=== PATIENT | male | born 1980 | race Caucasian/White ===

== ENCOUNTER 2022-04-18 23:54 | Inpatient (IN) | payer BC ==
[~2022-04-18] VITALS: Ht 182.9 cm; Wt 83.9 kg
[2022-04-19] VITALS: BP_SYST 167
[2022-04-19 01:16] LABS: BILIRUBIN,URINE NEGATIVE (NEGATIVE); BLOOD, URINE 1+ (NEGATIVE); CLARITY/URINE CLEAR (CLEAR); COLOR,URINE YELLOW (YELLOW); GLUCOSE,URINE NEGATIVE (NEGATIVE); KETONES,URINE NEGATIVE (NEGATIVE); LEUKOCYTE ESTERASE ,URINE NEGATIVE (NEGATIVE); NITRITE, URINE NEGATIVE (NEGATIVE); PH,URINE 5.5 (5.0-8.0); PROTEIN URINE NEGATIVE (NEGATIVE); UROBILINOGEN,URINE 0.2 (0.2-1.0)
[2022-04-19 01:19] LABS: CREATININE 0.94 mg/dL (0.55-1.30)
[2022-04-19 01:26] LABS: ALBUMIN 3.7 g/dL (3.4-4.8); TOTAL BILIRUBIN 0.4 mg/dL (0.0-1.0)
[2022-04-19 01:36] LABS: BASOPHILS # (AUTO) 0.1 K/uL (0.0-0.2); BASOPHILS % (AUTO) 0.6 % (0.0-2.0); EOSINOPHILS # (AUTO) 0.1 K/uL (0.0-0.4); EOSINOPHILS % (AUTO) 0.8 % (0.0-4.0); HEMATOCRIT 42.9 % (36-54); HEMOGLOBIN 14.5 g/dL (14.0-18.0); LYMPHOCYTES # (AUTO) 3.4 K/uL (1.0-5.5); LYMPHOCYTES % (AUTO) 21.8 % (20.5-51.5); MEAN CORPUSCULAR HEMOGLOBIN 32 pg (27-31); MEAN CORPUSCULAR HGB CONC 34 % (32-36); MEAN CORPUSCULAR VOLUME 93 fL (79.0-98.0); MONOCYTES # (AUTO) 1.1 K/uL (0.0-1.0); MONOCYTES % (AUTO) 6.7 % (1.7-9.3); NEUTROPHILS % (AUTO) 70.1 % (40.0-70.0); PLATELET COUNT (AUTO) 278 K/uL (130-430); RED CELL DISTRIBUTION WIDTH 13.3 % (9.0-15.0); WHITE BLOOD COUNT (AUTO) 15.8 K/uL (4.8-10.8)
[2022-04-19 01:51] LABS: BACTERIA,URINE RARE /HPF (None Seen); RBC,URINE 0-3 /HPF (0-3); WBC,URINE 0-3 /HPF (0-3)
--- NOTE | 2022-04-19 02:10 | NUR ---
PT DROVE HIMSELF TO ER WITH COMPLAINTS OF LOWER RIGHT ABDOMINAL QUADRANT WHICH STARTED LAST NIGHT AFTER HAVING DINNER AT [employer]. PT FEEL ASLEEP ONCE HE GOT HOME AND WAS AWAKEN APX 45 MIN LATER WITH THE ABDOMINAL PAIN AND HAS GOTTEN PROGRESSIVELY MORE INTENCE THROUGHOUT NIGHT AND DROVE HIMSELF TO ER. PT DENIES CHEST PAIN, ARM PAIN AND DENIES TROUBLE BREATHIN. PT IS AOX4. PT IN BED WITH BED LOWERED AND LOCKED, RAILS UP. WILL CONTINUE TO MONITOR
--- NOTE | 2022-04-19 02:25 | NUR ---
# 18 gauge angiocath placed to LAC. Use of asceptic technique. Opsite placed over site. Blood return noted. Blood for lab drawn from site. Flushed with 10 cc of normal saline. No evidence of infiltration noted. Patient tolerated well.
[2022-04-19] MEDS ORDERED: NACL 0.9% 1,000 ML IV ONE (02:30)
[2022-04-19] MEDS ORDERED: ONDANSETRON HCL 4 MG/2 ML VIAL IVP ONE (02:30)
[2022-04-19] MEDS ORDERED: MORPHINE 4 MG INJ. 4 MG/ML VIAL IVP ONE ×2 (02:30→04:30)
[2022-04-19] MEDS ORDERED: PIPERACILLIN/TAZO 3.375 GM in NS 50 ML IV ONE (02:30)
[2022-04-19] MEDS ORDERED: PIPERACILLIN/TAZOBACTAM 3.375 GM/VIAL (ZOSYN) IV ONE (02:42)
--- NOTE | 2022-04-19 02:57 | NUR ---
Admit bed requested Patient will be admitted to care of . Admitted to MED SURG unit. Diagnosis ACUTE APPENDICITUS Inpatient (Yes or No) YES Observation (Yes or No) NO Orientation concerns or request close to nursing station (Yes or No) NO Covid Status PENDING On vent or bipap NO Isolation requirements NO Needs a sitter NO From Home (Yes or if No enter name of facility) HOME Requires Dialysis (Yes or No) NO Med Rec Completed (Yes of No) YES
[2022-04-19] MEDS ORDERED: D5NS 1,000 ML IV ONE (03:00)
[2022-04-19] MEDS ORDERED: MORPHINE 2 MG/ML INJ. SYRINGE IVP PRN ×6 (03:00→12:45)
[2022-04-19] MEDS ORDERED: ACETAMINOPHEN 325 MG TABLET PO PRN (05:45)
[2022-04-19] MEDS ORDERED: NALOXONE HCL 0.4 MG/ML AMP (NARCAN) IVP PRN ×2 (05:45)
[2022-04-19] MEDS ORDERED: POTASSIUM CHLORIDE 20 MEQ TAB.PRT.SR PO PRN (05:45)
[2022-04-19] MEDS ORDERED: LORazepam 2 MG/ML VIAL IVP PRN (05:45)
[2022-04-19] MEDS ORDERED: MUPIROCIN 2% TOPICAL OINTMENT 22 GM NS PRN (05:45)
[2022-04-19] MEDS ORDERED: DOCUSATE SODIUM 100 MG CAPSULE PO PRN (05:45)
[2022-04-19] MEDS ORDERED: ZOLPIDEM TARTRATE 5 MG TABLET PO PRN (05:45)
[2022-04-19] MEDS ORDERED: ONDANSETRON HCL 4 MG/2 ML VIAL IVP PRN ×2 (05:45→16:15)
[2022-04-19] MEDS ORDERED: MAGNESIUM SULFATE 50 ML IV PRN (05:45)
--- NOTE | 2022-04-19 07:30 | NUR ---
ASSUMED CARE OF PT AT THIS TIME. PT IN BED RESTING COMFORTABLY, REPORTS 7/10 rlq PAIN. PT WAS LAST MEDICATED AT 0530. DISCUSSED NON PHARMACOLOGICAL MEASURES WITH PT. VSS. RESP EVEN AND UNLABORED. AWAITING MEDICAL BED. WILL CONT TO MONITOR
--- NOTE | 2022-04-19 09:05 | NUR ---
PT HAS READY BED. PT REPORTS PAIN 06/22. PT IS NOT DUE FOR PAIN MEDICATION YET. WILL INFORM MD FOR PAIN MEDICATION. VSS. WILL PREPARE PT FOR TRANSFER TO FLOOR
--- NOTE | 2022-04-19 09:08 | NUR ---
REPORT CALLED TO [facility]. PT GOING TO ROOM 100B. ENDORSED TO RN AWAITING PAIN MEDICATION ORDERS. VSS. RESP EVEN AND UNLABRED. PT IS STABLE FOR TRANSFER TO FLOOR
[2022-04-19 09:30] VITALS: BP_SYST 144
--- NOTE | 2022-04-19 09:30 | NUR ---
Opening Notes Patient is awake, alert and oriented x4. Pt was able to ambulate from gurney to bed, stable gait. No resp distress noted. Breathing is even and unlabored, RA. Pt is c/o 9/10 RLQ pain, throbbing/sharp, requesting pain meds. Administered Morphine 2 mg IVP at 0933, tolerated well. IV site on left AC 18 gauge intact. Started IVF: D5NS @ 100ml/hr, infusing well. Pt remains NPO for scheduled surgery with Dr. Maddox at approximately [phone]. Consent signed, pending anesthesiologist consent. Pt was oriented to the room and taught use of the call light. Pt was successful in return demo. Nares swabbed for MRSA, sent to lab. All needs met at this time. Safety and fall precautions in place. Bed in lowest position, locked. Will continue to monitor.
[2022-04-19 09:37] VITALS: BP_SYST 144
[2022-04-19] MEDS: PIPERACILLIN/TAZO 3.375/DEX-IS 50 ML IV SCH ×3 (11:17→23:24)
--- NOTE | 2022-04-19 11:38 | NUR ---
CONSULT SURGERY ACUTE APPENDICITIS SERENA ELLIOTT [phone] S/W GOLD OFFICE
--- NOTE | 2022-04-19 12:00 | NUR ---
Notes Patient is sleeping in bed. No resp distress noted. Breathing is even and unlabored, RA. Pt shows no signs of pain at this time. Pt remains NPO, pending surgery. Will continue to monitor.
[2022-04-19 13:08] VITALS: BP_SYST 154
--- NOTE | 2022-04-19 15:15 | NUR ---
Patient transferred to surgery. No acute distress. Will continue to monitor.
--- NOTE | 2022-04-19 16:00 | NUR ---
Patient off the floor, still in surgery.
[2022-04-19] MEDS ORDERED: METOCLOPRAMIDE HCL 10 MG/2 ML VIAL IVP PRN (16:15)
[2022-04-19] MEDS ORDERED: fentaNYL CITRATE/PF 100 MCG/2 ML AMP IVP PRN ×2 (16:15)
[2022-04-19] MEDS ORDERED: GLYCOPYRROLATE 0.2 MG/ML VIAL ONE (17:45)
[2022-04-19] MEDS ORDERED: MIDAZOLAM HCL 5 MG/ML VIAL (VERSED) IV ONE (17:45)
[2022-04-19] MEDS ORDERED: fentaNYL CITRATE/PF 100 MCG/2 ML AMP ONE (17:45)
[2022-04-19] MEDS ORDERED: PHENYLEPHRINE HCL 10 MG/ML VIAL (NEOSYNEPHRINE) ONE (17:45)
[2022-04-19] MEDS ORDERED: WATER FOR IRRIGATION,STERILE 1,000 ML IRRIG.SOLN IR ONE (17:45)
[2022-04-19] MEDS ORDERED: NS 1000 ML IV.SOLN IV ONE (17:45)
[2022-04-19] MEDS ORDERED: ROCURONIUM BROMIDE 10 MG/ML (ZEMURON) ONE (17:45)
[2022-04-19] MEDS ORDERED: BUPIVACAINE /EPINEPHRINE/PF 0.25% 30 ML VIAL INJ ONE (17:45)
[2022-04-19] MEDS ORDERED: SEVOFLURANE 15 MIN GAS INH ONE (17:45)
[2022-04-19] MEDS ORDERED: PROPOFOL 200MG/ 20ML VIAL (DIPRIVAN) IV ONE (17:45)
--- NOTE | 2022-04-19 18:30 | NUR ---
Closing Notes/Back from Sx Received patient back from surgery, stable at this time. No resp distress noted. Breathing is even and unlabored, RA. Pt denies any pain at this time. IV site on left FA 18 gauge intact, IV ATB Zosyn started. Pt was able to void using his bedside urinal, 600 cc of clear and yellow urine. Per pt, he has NOT passed flatus yet. Pt is noted with 3 abdominal incisions, C/D/I. NONI drain on LLQ, pink tinged output. Pt to resume clear liquid diet/no red. Pt educated on use of IS. , Clau by bedside. All needs met at this time. Safety and fall precautions in place. Bed in lowest position, alarm on, locked. Will continue to monitor.
[2022-04-19 20:10] VITALS: BP_SYST 145
--- NOTE | 2022-04-19 20:10 | NUR ---
PM ASSESSMENT; -Pt is a/xo4, resting in bed comfortably. Pt denies any chest pain,pain,sob,or any acute distress noted. Surgical site of mid abdominal w/ 3x incisional drsg cdi w/ JPx1 (left lateral ) drains pinkish drainage noted. IV site patent, no s/s any infiltration after flushed w/ NS noted. Pt tolerated ice chips and fluid well, no s/s any N&V or any difficulty noted. Spouse is at bedside. Call light w/in reach. All safety measures in place. Cont to monitor pt.
--- NOTE | 2022-04-19 23:29 | NUR ---
ROUNDS; PAIN MGMT -Pt is c/o abdom pain 03/22, gave Morphine IVP for pain mgmt. Pt denies chest pain,sob,or any acute distress. Gave Zosyn IVPB. IV site patent, no s/s any infiltration noted. Call light w/in reach. All safety measures in place. Cont to monitor pt.
[2022-04-20 00:24] VITALS: BP_SYST 133
--- NOTE | 2022-04-20 00:25 | NUR ---
ROUNDS; -Pt is laying in bed comfortably. Pt denies chest pain,sob,or any acute distress. Side railsx2, Call light w/in reach. All safety measures in place. Cont to monitor pt.
--- NOTE | 2022-04-20 02:30 | NUR ---
ROUNDS; -Pt is asleep. NO s/s any chest pain,sob,or any acute distress noted. Side railsx2, Call light w/in reach. All safety measures in place. Cont to monitor pt.
--- NOTE | 2022-04-20 04:40 | NUR ---
ROUNDS; -Pt awakes, resting in bed. Pt stated that he ambulated fdc w/o any difficulty. Pt denies any chest pain,sob,or any acute distress noted. Pt refused to use dez SCD this time. Pt used incentive spirometry 6-10x at marker 2000ml, encouraged pt to increase more of the marker, pt verbalized understanding. Side railsx2, Call light w/in reach. All safety measures in place. Cont to monitor pt.
[2022-04-20] MEDS: PIPERACILLIN/TAZO 3.375/DEX-IS 50 ML IV SCH ×3 (05:04→19:06)
--- NOTE | 2022-04-20 06:18 | NUR ---
ROUNDS; -Pt awakes, resting in bed comfortably. Pt denies any chest pain,sob,or any acute distress. Surgical site cdi drsg of mid abdom w/ JPx1 20 ml output. Side railsx2, Call light w/in reach. All safety measures in place. Cont to monitor pt.
--- NOTE | 2022-04-20 06:35 | NUR ---
CLOSING NOTES; -Pt is asleep. NO s/s any chest pain,pain,sob,or any acute distress noted. Surgical site of mid abdominal w/ 3x incisional drsg cdi w/ JPx1 (left lateral ) drains pinkish drainage noted. IV site patent drsg cdi. Call light w/in reach. All safety measures in place.Will endorse to next nurse to cont care.
[2022-04-20 06:41] LABS: BASOPHILS # (AUTO) 0.1 K/uL (0.0-0.2); BASOPHILS % (AUTO) 0.5 % (0.0-2.0); EOSINOPHILS % (AUTO) 0.3 % (0.0-4.0); HEMATOCRIT 40.5 % (36-54); HEMOGLOBIN 13.9 g/dL (14.0-18.0); LYMPHOCYTES # (AUTO) 2.1 K/uL (1.0-5.5); LYMPHOCYTES % (AUTO) 16.2 % (20.5-51.5); MEAN CORPUSCULAR HEMOGLOBIN 32 pg (27-31); MEAN CORPUSCULAR HGB CONC 34 % (32-36); MEAN CORPUSCULAR VOLUME 93 fL (79.0-98.0); MONOCYTES # (AUTO) 1.2 K/uL (0.0-1.0); MONOCYTES % (AUTO) 9.8 % (1.7-9.3); NEUTROPHILS # (AUTO) 9.3 K/uL (1.8-7.7); NEUTROPHILS % (AUTO) 73.2 % (40.0-70.0); PLATELET COUNT (AUTO) 222 K/uL (130-430); RED BLOOD CELL COUNT(AUTO) 4.35 MIL/uL (4.2-6.2); RED CELL DISTRIBUTION WIDTH 13.4 % (9.0-15.0); WHITE BLOOD COUNT (AUTO) 12.7 K/uL (4.8-10.8)
[2022-04-20 06:53] LABS: CALCIUM 8.3 mg/dL (8.4-11.0); CREATININE 0.87 mg/dL (0.55-1.30); POTASSIUM 3.5 mmol/L (3.5-5.1)
[2022-04-20 08:00] VITALS: BP_SYST 139
[2022-04-20 11:27] VITALS: BP_SYST 134
[2022-04-20 16:00] VITALS: BP_SYST 139
--- NOTE | 2022-04-20 18:00 | NUR ---
QUIET HOURS NOTED THROUGHOUT THE SHIFT. PT HAS BEEN RECEIVING IV ANTIBIOTICS. DSG TO ABD. C/D/I. TOLERATING REGULAR DIET WITHOUT NOTED PROBLEMS.
[2022-04-20] MEDS ORDERED: AUG875 PO (18:13)
[2022-04-20] MEDS ORDERED: HYDR-3917 PO (18:13)
[2022-04-20 19:41] VITALS: BP_SYST 139
--- NOTE | 2022-04-20 20:46 | NUR ---
DISCHARGE NOTES; -Pt is a/ox4, denies any chest pain,pain,sob,or any acute distress. VSS 98.1,20, 139/82,78,20,t4tfr=22% r/a. Discharged patient home with discharge instructions given including f/u Dr. Maddox and call for appt and no heavy lifting for 4 weeks,no more than 10 lbs and may removed drsg, leave steri-strips on per MD. Dr. Maddox gave Amox and Parkin rx to patient per spouse's statement. Removed IV site of LAC with whole tip catheter removed, applied gauze, secured with tape. All belongings taken by spouse at bedside. Drsgs of abdominal sites cdi with steri strips on and no NONI noted. Assisting via w/c to private car by Vielka. NO s/s any pain,sob,non labored breathing,or any acute distress noted.
== END 2022-04-20 20:46 | disposition home or self-care (01) | DRG 343 ==
LOC: SED 23:54 → SMU 04-19 02:54
PROVIDERS: ADMIT General Practice; ATTEND General Practice
PROC: 8E0W4CZ Robotic Assisted Procedure of Trunk Region, Percutaneous Endoscopic Approach (ICD-10-PCS; 2022-04-19)
PROC: 0DTJ4ZZ Resection of Appendix, Percutaneous Endoscopic Approach (ICD-10-PCS; principal; 2022-04-19 15:50)
DX: K35.31 Acute appendicitis with localized peritonitis and gangrene, without perforation (principal); I10 Essential (primary) hypertension; F17.210 Nicotine dependence, cigarettes, uncomplicated; Z20.822 Contact with and (suspected) exposure to COVID-19; K38.1 Appendicular concretions
CPT/HCPCS: 36415; 76376; 80048; 80053; 81000; 83036; 83690; 83735; 85025; 87040; 87081; 88304; 96365; 96375; 96376; 99285; C1727; J2250; J2270; J2370; J2405; J2543; J2704; J3010; J3475; J3490; J7030

== ENCOUNTER 2024-09-10 21:20 | Emergency (ER) | payer BC ==
[~2024-09-10] VITALS: Ht 182.9 cm; Wt 86.2 kg
[~2024-09-10 21:20] MED LIST: AUG875 PO; HYDR-3917 PO
[2024-09-10 21:47] VITALS: BP_SYST 151; PULSE 87; RESP 20; TEMP 98; O2SAT 98
== END 2024-09-10 22:37 | disposition left against medical advice (07) ==
LOC: SED 21:20
DX: R53.1 Weakness (principal); Z53.21 Procedure and treatment not carried out due to patient leaving prior to being seen by health care provider

== ENCOUNTER 2024-09-11 14:44 | Emergency (ER) | payer BC ==
[~2024-09-11] VITALS: Ht 182.9 cm; Wt 88.5 kg
[2024-09-11 14:57] VITALS: BP_SYST 145; PULSE 71; RESP 16; TEMP 97.6; O2SAT 98
[2024-09-11 15:30] LABS: BILIRUBIN,URINE NEGATIVE (NEGATIVE); CLARITY/URINE CLEAR (CLEAR); COLOR,URINE YELLOW (YELLOW); GLUCOSE,URINE NEGATIVE (NEGATIVE); KETONES,URINE NEGATIVE (NEGATIVE); LEUKOCYTE ESTERASE ,URINE NEGATIVE (NEGATIVE); NITRITE, URINE NEGATIVE (NEGATIVE); PH,URINE 6.5 (5.0-8.0); PROTEIN URINE TRACE (NEGATIVE); UROBILINOGEN,URINE 0.2 (0.2-1.0)
[2024-09-11 15:53] LABS: BLOOD, URINE TRACE (NEGATIVE)
[2024-09-11 15:56] LABS: BACTERIA,URINE RARE /HPF (None Seen); RBC,URINE 0-3 /HPF (0-3); WBC,URINE 0-3 /HPF (0-3)
[2024-09-11 16:32] LABS: BASOPHILS # (AUTO) 0.3 K/uL (0.0-0.2); BASOPHILS % (AUTO) 3.5 % (0.0-2.0); EOSINOPHILS % (AUTO) 0.5 % (0.0-4.0); HEMOGLOBIN 15.3 g/dL (14.0-18.0); LYMPHOCYTES % (AUTO) 22.6 % (20.5-51.5); MEAN CORPUSCULAR HEMOGLOBIN 32 pg (27-31); MEAN CORPUSCULAR HGB CONC 34 % (32-36); MEAN CORPUSCULAR VOLUME 93 fL (79.0-98.0); MONOCYTES # (AUTO) 0.5 K/uL (0.0-1.0); MONOCYTES % (AUTO) 5.9 % (1.7-9.3); NEUTROPHILS % (AUTO) 67.5 % (40.0-70.0); PLATELET COUNT (AUTO) 307 K/uL (130-430); RED BLOOD CELL COUNT(AUTO) 4.85 MIL/uL (4.2-6.2); RED CELL DISTRIBUTION WIDTH 13.4 % (9.0-15.0); WHITE BLOOD COUNT (AUTO) 8.9 K/uL (4.8-10.8)
[2024-09-11 16:38] LABS: BARBITURATE, URINE NEGATIVE (NEG <=200); BENZODIAZEPINE, URINE NEGATIVE (NEG <=150); CANNABINOID, URINE NEGATIVE (NEG <=50); COCAINE, URINE NEGATIVE (NEG <=150); METHAMPHETAMINES SCREEN,URINE NEGATIVE (NEG <=500); OPIATE, URINE NEGATIVE (NEG <=100); PHENCYCLIDINE SCREEN,URINE NEGATIVE (NEG <=25); UR TRICYCLIC ANTIDEPRESSANTS NEGATIVE (NEG <=300); URINE AMPHETAMINE NEGATIVE (NEG <=500); URINE METHADONE NEGATIVE (NEG <=200); URINE OXYCODONE SCREEN NEGATIVE (NEG <=100)
[2024-09-11 16:52] LABS: ALANINE AMINOTRANSFERASE 32 U/L (12-78); ALBUMIN 4.1 g/dL (3.4-4.8); ANION GAP 9 (5-15); ASPARTATE AMINOTRANSFERASE 23 U/L (10-37); CALCIUM 9.4 mg/dL (8.4-11.0); CARBON DIOXIDE 30 mmol/L (23-29); CHLORIDE 104 mmol/L (98-107); CREATININE 1.15 mg/dL (0.55-1.30); GFR AFRICAN AMERICAN 88 mL/min (>90); GLUCOSE 97 mg/dL (74-106); POTASSIUM 4.5 mmol/L (3.5-5.1); SODIUM SERUM 143 mmol/L (136-145); TOTAL BILIRUBIN 0.6 mg/dL (0.0-1.0); UREA NITROGEN, BLOOD 11 mg/dL (8-21)
[2024-09-11 16:55] LABS: SALICYLATE 4 mg/dL (3-30)
[2024-09-11 17:13] LABS: COVID19 ANTIGEN SOFIA FIA NEGATIVE (NEGATIVE)
[2024-09-11 17:16] LABS: ACETAMINOPHEN < 1 ug/mL (1-30); ALCOHOL, BLOOD < 3 mg/dL (<10); GFR NON AFRICAN-AMERICAN 73 mL/min (>90)
[2024-09-11] MEDS ORDERED: iohexoL 350 mgI/mL, 100 ML INFUS..BTL IV ONE (17:19)
[2024-09-11 17:22] LABS: INFLUENZA TYPE A Negative (NEGATIVE); INFLUENZA TYPE B NEGATIVE (NEGATIVE)
[2024-09-11] MEDS: METOCLOPRAMIDE HCL 10 MG/2 ML VIAL IVP ONE (17:41)
[2024-09-11] MEDS: ACETAMINOPHEN 500 MG TABLET PO ONE (17:41)
[2024-09-11 19:47] VITALS: BP_SYST 144; PULSE 76; RESP 19; TEMP 98.3; O2SAT 97
== END 2024-09-11 19:47 | disposition home or self-care (01) ==
LOC: SED 14:44
DX: R53.1 Weakness (principal); R51.9 Headache, unspecified; R42 Dizziness and giddiness; R07.89 Other chest pain; H53.9 Unspecified visual disturbance; I65.21 Occlusion and stenosis of right carotid artery; Z20.822 Contact with and (suspected) exposure to COVID-19; Z79.899 Other long term (current) drug therapy; Z79.2 Long term (current) use of antibiotics
CPT/HCPCS: 99285; 70450; 71045; 87426; 80307; 80053; 81001; 85025; 84484; 36415; 93005; 70496; 70498; 87804 ×2; G0482; Q9967; G0480; G0481; 81000; 81015; J2765